=== PATIENT | female | born 1950 | race African-American/Black ===

== ENCOUNTER 2021-05-11 05:46 | Inpatient (IN) ==
[2021-05-11] MEDS ORDERED: ACETAMINOPHEN 500 MG TABLET PO ONE (06:00)
[2021-05-11] MEDS ORDERED: FAMOTIDINE 20 MG TABLET PO ONE (06:00)
[2021-05-11] MEDS ORDERED: GABAPENTIN 400 MG CAPSULE PO ONE (06:00)
[2021-05-11] MEDS ORDERED: VANCOMYCIN 1,000 MG VIAL ONE ×3 (06:02→07:57)
[2021-05-11] MEDS ORDERED: CLINDAMYCIN INJ 900 MG/50 ML PREMIX IV ONE ×3 (06:03→12:06)
[2021-05-11] MEDS ORDERED: LIDOCAINE 2% 5 ML VIAL ONE ×2 (06:21→14:13)
[2021-05-11] MEDS ORDERED: DEXAMETHASONE 4 MG/1 ML VIAL ONE ×3 (06:21→15:03)
[2021-05-11] MEDS ORDERED: propofoL 200 MG/20 ML VIAL IV ONE ×2 (06:21→14:13)
[2021-05-11] MEDS ORDERED: ONDANSETRON 4 MG/2 ML VIAL ONE (06:21)
[2021-05-11] MEDS ORDERED: MIDAZOLAM 2 MG/2 ML VIAL ONE (06:22)
[2021-05-11] MEDS ORDERED: TRANEXAMIC ACID 1,000 MG/10 ML VIAL ONE (06:22)
[2021-05-11] MEDS ORDERED: LACTATED RINGERS 1,000 ML IV SCH (06:30)
[2021-05-11] MEDS ORDERED: TOBRAMYCIN 1.2 GM VIAL TOP ONE ×2 (06:33→07:57)
[2021-05-11] MEDS ORDERED: BACITRACIN OINT 0.9 GM PACK TOP ONE ×3 (06:34→15:18)
[2021-05-11] MEDS ORDERED: BUPIVACAINE MPF 0.25% 30 ML VIAL ONE (06:35)
[2021-05-11] MEDS ORDERED: LIDOCAINE 1% 5 ML VIAL ONE (06:35)
[2021-05-11] MEDS ORDERED: SEVOFLURANE 1 UNIT/15 MINUTE INH ONE ×7 (07:03→15:03)
[2021-05-11] MEDS ORDERED: fentaNYL 100 MCG/2 ML VIAL ONE ×3 (07:03→14:15)
[2021-05-11] MEDS ORDERED: ROCURONIUM 50 MG/5 ML VIAL IV ONE ×2 (07:03→14:13)
[2021-05-11] MEDS ORDERED: ePHEDrine 50 MG/ML VIAL ONE (07:13)
[2021-05-11] MEDS ORDERED: PHENYLEPHRINE 10 MG/1 ML VIAL IV ONE ×2 (07:18→14:17)
[2021-05-11] MEDS ORDERED: NEOSTIGMINE 10 MG/10 ML VIAL ONE ×2 (10:03→15:22)
[2021-05-11] MEDS ORDERED: GLYCOPYRROLATE 0.4 MG/2 ML VIAL ONE ×2 (10:03→15:22)
[2021-05-11] MEDS ORDERED: diphenhydrAMINE CAP 25 MG CAPSULE PO PRN (10:42)
[2021-05-11] MEDS ORDERED: ONDANSETRON 4 MG/2 ML VIAL IV PRN ×2 (10:42→11:07)
[2021-05-11] MEDS ORDERED: ZALEPLON 5 MG CAPSULE PO PRN (10:42)
[2021-05-11] MEDS ORDERED: MORPHINE 2 MG/1 ML SYRINGE IV PRN ×2 (10:42)
[2021-05-11 10:58] LABS: Bilirubin,Urine Negative (Negative); Blood, Urine Negative (Negative); Glucose,Urine (UA) Negative (Negative); Hyaline Casts,Urine 7 /LPF (0-3); Ketones,Urine Negative (Negative); Nitrite,Urine Negative (Negative); Protein,Urine Negative; RBC,Urine 1 /HPF (0-4); Squamous Epithelial Cell,Urine Occasional /HPF (0-10); Urine Appearance CLEAR (Clear); Urine Color Yellow (Yellow); Urine Urobilinogen < 2.0 EU/DL (0.2-1.0)
[2021-05-11] MEDS ORDERED: VANCOMYCIN INJ 1,000 MG in SODIUM CHLORIDE 0.9% 250 ML IV ONE ×2 (10:58→18:43)
[2021-05-11] MEDS: HYDROmorphone 2 MG/1 ML VIAL IV PRN ×3 (11:23→13:04)
[2021-05-11] MEDS ORDERED: SODIUM CHLORIDE 0.9% 250 ML IV ONE (14:46)
[2021-05-11] MEDS ORDERED: LACTATED RINGERS 1,000 ML IV ONE (15:24)
[2021-05-11] MEDS: LACTATED RINGERS 1,000 ML IV SCH ×2 (17:29→22:18)
[2021-05-11] MEDS: CLINDAMYCIN INJ 900 MG/50 ML PREMIX IV SCH ×2 (17:29→22:18)
[2021-05-11] MEDS: APIXABAN 2.5 MG TABLET PO SCH (20:47)
[2021-05-11] MEDS: MULTIVITAMIN (OCUVITE) TABLET PO SCH (20:47)
[2021-05-11] MEDS: DOCUSATE SODIUM 100 MG CAPSULE PO SCH (20:47)
[2021-05-11] MEDS: GABAPENTIN 300 MG CAPSULE PO SCH (20:47)
[2021-05-12] MEDS: LACTATED RINGERS 1,000 ML IV SCH (05:02)
[2021-05-12 05:16] LABS: Hematocrit 27.2 VOL% (35.7-47.0); Hemoglobin 8.8 GM/DL (12.0-16.0); Immature Granulocytes % 0.4 %; Immature Granulocytes Absolute 0.03 #; Lymphocytes # 1.1 10*3/uL (1.4-4.0); Lymphocytes % 13.1 % (21.3-54.2); Mean Corpuscular HGB Conc 32.4 GM/DL (32-36); Mean Corpuscular Volume 84.2 FL (87-102); Mean Platelet Volume 11.3 FL (9.6-12.0); Neutrophils % 71.5 % (38.7-73.9); Platelet Count 141 T/CUMM (130-400); Red Blood Count 3.23 MC/CUMM (3.8-5.5); Red Cell Distribution Width 15.7 % (9.3-17.3); White Blood Count 8.3 T/CUMM (4-12)
[2021-05-12 05:38] LABS: Band Neutrophils 1 % (0-10); Hypochromasia 1+; Lymphocytes 17 % (20-55); Microcytosis 1+; Platelet Estimate Adequate; Segmented Neutrophils 69 % (50-85); Total Cells Counted 100
[2021-05-12 05:41] LABS: Calcium 7.8 MG/DL (8.5-10.1); Osmolality,Calculated 280.4 MOS/KG (273-304); Potassium 4.1 MMOL/L (3.5-5.1)
[2021-05-12] MEDS: CLINDAMYCIN INJ 900 MG/50 ML PREMIX IV SCH ×3 (06:00→22:54)
[2021-05-12] MEDS: predniSONE 5 MG TABLET PO SCH (08:34)
[2021-05-12] MEDS: APIXABAN 2.5 MG TABLET PO SCH ×2 (08:34→21:56)
[2021-05-12] MEDS: GABAPENTIN 300 MG CAPSULE PO SCH ×2 (08:34→21:56)
[2021-05-12] MEDS: HYDROXYCHLOROQUINE 200 MG TABLET PO SCH (08:34)
[2021-05-12] MEDS: DOCUSATE SODIUM 100 MG CAPSULE PO SCH ×2 (08:34→21:56)
[2021-05-12] MEDS: MULTIVITAMIN (OCUVITE) TABLET PO SCH ×2 (08:35→21:55)
[2021-05-12] MEDS: MULTIVITAMIN (CENTRUM) TABLET PO SCH (08:35)
[2021-05-12 09:37] LABS: % Iron Saturation 14.1 % (18-50)
[2021-05-12] MEDS ORDERED: TROLAMINE SALICYLATE 10% CREAM 85 GM TUBE TOP PRN (17:00)
[2021-05-13 06:01] LABS: Basophils % 0.2 % (0.0-0.8); Eosinophils % 0.2 % (0.00-10.9); Hematocrit 25.7 VOL% (35.7-47.0); Hemoglobin 8.6 GM/DL (12.0-16.0); Immature Granulocytes % 0.5 %; Immature Granulocytes Absolute 0.05 #; Lymphocytes # 1.5 10*3/uL (1.4-4.0); Lymphocytes % 15.9 % (21.3-54.2); Mean Corpuscular HGB Conc 33.5 GM/DL (32-36); Mean Corpuscular Volume 84.3 FL (87-102); Mean Platelet Volume 11.8 FL (9.6-12.0); Monocytes % 13.4 % (1.7-12.7); Neutrophils % 69.8 % (38.7-73.9); Platelet Count 114 T/CUMM (130-400); Red Blood Count 3.05 MC/CUMM (3.8-5.5); Red Cell Distribution Width 15.7 % (9.3-17.3); White Blood Count 9.2 T/CUMM (4-12)
[2021-05-13 06:19] LABS: Calcium 8.2 MG/DL (8.5-10.1); Potassium 3.7 MMOL/L (3.5-5.1)
[2021-05-13 06:24] LABS: Hypochromasia Slight; Lymphocytes 18 % (20-55); Microcytosis Slight; Platelet Estimate Normal; Segmented Neutrophils 77 % (50-85); Total Cells Counted 100
[2021-05-13] MEDS: CLINDAMYCIN INJ 900 MG/50 ML PREMIX IV SCH (06:34)
[2021-05-13] MEDS: FERROUS SULFATE 325 MG TABLET PO SCH ×2 (09:33→17:23)
[2021-05-13] MEDS: MAGNESIUM CHLORIDE 64 MG TABLET PO SCH ×2 (09:33→21:03)
[2021-05-13] MEDS: APIXABAN 2.5 MG TABLET PO SCH ×2 (09:34→21:03)
[2021-05-13] MEDS: MAGNESIUM HYDROXIDE SUSP 30 ML UDCUP PO PRN ×2 (09:34→21:05)
[2021-05-13] MEDS: HYDROXYCHLOROQUINE 200 MG TABLET PO SCH (09:34)
[2021-05-13] MEDS: DOCUSATE SODIUM 100 MG CAPSULE PO SCH ×2 (09:34→21:03)
[2021-05-13] MEDS: predniSONE 5 MG TABLET PO SCH (09:34)
[2021-05-13] MEDS: MULTIVITAMIN (OCUVITE) TABLET PO SCH ×2 (09:34→21:03)
[2021-05-13] MEDS: MULTIVITAMIN (CENTRUM) TABLET PO SCH (09:34)
[2021-05-13] MEDS: GABAPENTIN 300 MG CAPSULE PO SCH ×2 (09:34→21:03)
[2021-05-13] MEDS ORDERED: INFLUENZA VIRUS VACCINE 0.5 ML SYRINGE IM ONE (10:55)
[2021-05-14 06:05] LABS: Basophils % 0.2 % (0.0-0.8); Eosinophils % 0.4 % (0.00-10.9); Hematocrit 24.8 VOL% (35.7-47.0); Hemoglobin 8.2 GM/DL (12.0-16.0); Immature Granulocytes % 0.8 %; Immature Granulocytes Absolute 0.07 #; Lymphocytes # 1.6 10*3/uL (1.4-4.0); Lymphocytes % 17.5 % (21.3-54.2); Mean Corpuscular HGB Conc 33.1 GM/DL (32-36); Mean Corpuscular Volume 84.4 FL (87-102); Mean Platelet Volume 11.4 FL (9.6-12.0); Monocytes % 14.5 % (1.7-12.7); Neutrophils % 66.6 % (38.7-73.9); Platelet Count 135 T/CUMM (130-400); Red Blood Count 2.94 MC/CUMM (3.8-5.5); Red Cell Distribution Width 15.6 % (9.3-17.3); White Blood Count 9.3 T/CUMM (4-12)
[2021-05-14 06:22] LABS: Osmolality,Calculated 272.7 MOS/KG (273-304); Potassium 3.8 MMOL/L (3.5-5.1)
[2021-05-14] MEDS: MULTIVITAMIN (CENTRUM) TABLET PO SCH (09:39)
[2021-05-14] MEDS: predniSONE 5 MG TABLET PO SCH (09:39)
[2021-05-14] MEDS: MAGNESIUM CHLORIDE 64 MG TABLET PO SCH ×2 (09:39→20:46)
[2021-05-14] MEDS: FERROUS SULFATE 325 MG TABLET PO SCH ×2 (09:39→17:27)
[2021-05-14] MEDS: DOCUSATE SODIUM 100 MG CAPSULE PO SCH ×2 (09:39→20:46)
[2021-05-14] MEDS: APIXABAN 2.5 MG TABLET PO SCH ×2 (09:39→20:46)
[2021-05-14] MEDS: MULTIVITAMIN (OCUVITE) TABLET PO SCH ×2 (09:39→20:46)
[2021-05-14] MEDS: HYDROXYCHLOROQUINE 200 MG TABLET PO SCH (09:39)
[2021-05-14] MEDS: GABAPENTIN 300 MG CAPSULE PO SCH ×2 (09:39→20:46)
[2021-05-14] MEDS ORDERED: cloNIDine 0.1 MG/24 HR PATCH TRANSDERM SCH (11:00)
[2021-05-14] MEDS: MAGNESIUM HYDROXIDE SUSP 30 ML UDCUP PO PRN (20:47)
[2021-05-15] MEDS: predniSONE 5 MG TABLET PO SCH (09:32)
[2021-05-15] MEDS: MULTIVITAMIN (OCUVITE) TABLET PO SCH ×2 (09:32→21:02)
[2021-05-15] MEDS: HYDROXYCHLOROQUINE 200 MG TABLET PO SCH (09:32)
[2021-05-15] MEDS: MULTIVITAMIN (CENTRUM) TABLET PO SCH (09:32)
[2021-05-15] MEDS: MAGNESIUM CHLORIDE 64 MG TABLET PO SCH ×2 (09:32→21:02)
[2021-05-15] MEDS: APIXABAN 2.5 MG TABLET PO SCH ×2 (09:32→21:02)
[2021-05-15] MEDS: GABAPENTIN 300 MG CAPSULE PO SCH ×2 (09:32→21:02)
[2021-05-15] MEDS: FERROUS SULFATE 325 MG TABLET PO SCH ×2 (09:32→16:31)
[2021-05-15] MEDS: DOCUSATE SODIUM 100 MG CAPSULE PO SCH ×2 (09:32→21:03)
[2021-05-16] MEDS: MULTIVITAMIN (OCUVITE) TABLET PO SCH (08:36)
[2021-05-16] MEDS: FERROUS SULFATE 325 MG TABLET PO SCH (08:36)
[2021-05-16] MEDS: predniSONE 5 MG TABLET PO SCH (08:36)
[2021-05-16] MEDS: MULTIVITAMIN (CENTRUM) TABLET PO SCH (08:36)
[2021-05-16] MEDS: APIXABAN 2.5 MG TABLET PO SCH (08:36)
[2021-05-16] MEDS: DOCUSATE SODIUM 100 MG CAPSULE PO SCH (08:36)
[2021-05-16] MEDS: GABAPENTIN 300 MG CAPSULE PO SCH (08:36)
[2021-05-16] MEDS: HYDROXYCHLOROQUINE 200 MG TABLET PO SCH (08:36)
[2021-05-16] MEDS: MAGNESIUM CHLORIDE 64 MG TABLET PO SCH (08:36)
[2021-05-16 16:40] VITALS: BP 99/53
[2021-05-17] MEDS ORDERED: ERGOCALCIFEROL 50,000 UNIT CAPSULE PO SCH (09:00)
== END 2021-05-16 17:35 | disposition swing bed (61) | DRG 468 ==
LOC: N.OR 05:46 → N.SDSINP 05:49 → N.3E 16:55
PROVIDERS: ADMIT Orthopaedic Surgery; ATTEND Orthopaedic Surgery